=== PATIENT | female | born 1985 | race Caucasian/White ===

== ENCOUNTER 2024-10-23 08:42 | Emergency (ER) | payer SELFPAY ==
[2024-10-23 08:53] VITALS: BP 140/91; PULSE 92; RESP 24; TEMP 36.6; O2SAT 95; BMI 28.2
--- NOTE | 2024-10-23 09:07 | ED_ITS ---
HPI - Abdominal Pain General Chief Complaint: Abdominal Pain Stated Complaint: stomach pain Time Seen by Provider: 10/23/24 09:01 History of Present Illness HPI narrative: Patient is a 39-year-old woman with a distant history of ectopic who comes in today with severe right-sided lower abdominal pain. She began having a severe pain approximately 2 hours ago. She is not certain if she is late on her menses. She has had severe pain accompanied by nausea without vomiting. He has had no vaginal bleeding. No reflux symptoms. The pain is dull and severe. She otherwise states she is in good health and has no home medications at this time. Related Data Home Medications ?Medication ?Instructions ?Recorded ?Confirmed No Known Home Medications 10/23/24 10/23/24 Allergies Allergy/AdvReac Type Severity Reaction Status Date / Time No Known Drug Allergies Allergy Verified 10/23/24 09:03 Review of Systems Status of ROS Reports: 10 or more systems reviewed and unremarkable except as noted in History and below [facility] Social History Smoking Status: Smoker, status unknown Do you use any of these nicotine containing products: None Exam Narrative: Exam Narrative: EXAM GENERAL: Patient appears acutely uncomfortable holding her abdomen. EYES: No scleral icterus. LYMPH: No supraclavicular or cervical lymphadenopathy. SKIN: Visible skin seen during exam normal or with benign process only. EXT: No dependent lower extremity pedal edema. HEART: Regular rate and rhythm with no murmurs, rubs, or gallops. LUNGS: Clear to auscultation bilaterally with no crackles or wheezes. ABD: Tenderness to palpation with hypoactive bowel sounds limited exam due to patient guarding. PSYCH: Good eye contact, speech is not pressured. Const: Vital Signs, click to edit/add: Vital Signs - 24 hr 10/23/24 08:53 Temperature 98 F Pulse Rate [Pulse Oximeter] 92 Respiratory Rate 24 Blood Pressure [Ri ght Upper Arm] 140/91 H Pulse Oximetry 95 Oxygen Delivery Me thod Room Air Course Course ED Course: Patient seen examined. Laboratory work collected. Will proceed with CT abdomen pelvis after her returns. We will treat with normal saline Dilaudid and IV Zofran. Vital Signs Vital signs: Initial Vital Signs Temperature 98 F 10/23/24 08:53 Temperature Source Temporal Artery Scan 10/23/24 08:53 Pulse Rate 92 10/23/24 08:53 Respiratory Rate 24 10/23/24 08:53 Blood Pressure 140/91 H 10/23/24 08:53 Blood Pressure Mean 107 H 10/23/24 08:53 Blood Pressure Position Standing 10/23/24 08:53 Pulse Oximetry 95 10/23/24 08:53 Oxygen Delivery Method Room Air 10/23/24 08:53 Vital Signs Temperature 98 F 10/23/24 08:53 Pulse Rate 92 10/23/24 08:53 Respiratory Rate 24 10/23/24 08:53 Blood Pressure 140/91 H 10/23/24 08:53 Pulse Oximetry 95 10/23/24 08:53 Oxygen Delivery Method Room Air 10/23/24 08:53 Temperature 98 F 10/23/24 08:53 Pulse Rate 92 10/23/24 08:53 Respiratory Rate 24 10/23/24 08:53 Blood Pressure 140/91 H 10/23/24 08:53 Pulse Oximetry 95 10/23/24 08:53 Oxygen Delivery Method Room Air 10/23/24 08:53 Medications Administered Medications: Discontinued Medications Generic Name Dose Route Start Last Admin Trade Name Freq PRN Reason Stop Dose Admin Hydromorphone HCl 1 mg 10/23/24 09:05 10/23/24 09:29 Hydromorphone 0.5 Mg/0.5 Ml Inj IVP 10/23/24 09:06 1 mg ONCE ONE Administration Sodium Chloride 1,000 mls @ 1,000 mls/hr 10/23/24 09:06 10/23/24 10:32 0.9 % Sodium Chloride 1000 Ml IV 10/23/24 10:05 Infused .Q1H ROSANA Infusion Ondansetron HCl 4 mg 10/23/24 09:05 10/23/24 09:29 Ondansetron 2 Mg/Ml Inj IVP 10/23/24 09:06 4 mg ONCE ONE Administration MDM - Abdominal Pain MDM Narrative Medical decision making narrative: Patient is a 39-year-old woman who comes in with the abrupt onset of severe pain in the right flank. She was convinced that she had a tubal . Evaluation indicates that she has a 4 mm right-sided kidney stone. She was treated with pain control and hydration. She feels much better. She also has a positive UA for signs of infection. I will be sent for culture. She states she is unable to afford any antibiotics or pain medication. I did give her g Rocephin to try to cover her UTI. In addition, I did recommend Tylenol and Motrin rest and fluids we did send her home with a stone collection kit. Primary care follow-up recommended. Lab Data Labs: Lab Results 10/23/24 10/23/24 Range/Units 09:20 10:30 WBC 9.40 (4.50-11.00) K/uL RBC 4.33 (4.00-5.20) m/uL Hgb 13.3 (12.0-16.0) gm/dL Hct 40.3 (33.0-51.0) % MCV 93 (80-100) fL MCH 31 (26-34) pg MCHC 33 (32-36) gm/dL RDW Coeff of Melisa 12.7 (11.5-15.5) % Plt Count 219 (140-440) K/uL Neut % (Auto) 73.6 H (42.0-72.0) % Lymph % (Auto) 16.7 L (20-44) % Cort[place] % (Auto) 7.6 (0.0-11.0) % Eos % (Auto) 1.7 (0.0-7.0) % Baso % (Auto) 0.3 (0.0-3.0) % Neut # (Auto) 6.90 (1.7-7.0) K/uL Lymph # (Auto) 1.60 (0.90-2.90) K/uL [place] # (Auto) 0.70 (0.00-0.90) K/UL Eos # (Auto) 0.16 (0.00-0.50) K/uL Baso # (Auto) 0.03 (0.00-0.30) K/uL Abs Immat Gran (auto) 0.01 (0.00-0.30) K/uL Imm/Tot Granulo (auto) 0.1 % Sodium 140 (135-149) mmol/L Potassium 4.2 (3.6-5.1) mmol/L Chloride 103 (96-114) mmol/L Carbon Dioxide 26 (20-32) mmol/L Anion Gap 11 (7-15) mEq/L BUN 16 (5-24) mg/dL Creatinine 1.1 (0.5-1.5) mg/dL Estimated Creat Clear 58.12 Estimated GFR 65 ml/min Glucose 116 H (60-115) mg/dL Calcium 9.8 (8.4-10.6) mg/dL Total Bilirubin 0.4 (0.1-1.5) mg/dL AST 23 (12-35) U/L ALT 19 (4-35) U/L Alkaline Phosphatase 47 (40-150) U/L Total Protein 7.1 (6.0-8.3) g/dL Albumin 4.6 (3.3-5.0) g/dL HCG, Qual Negative (Negative) Urine Color Yellow (Yellow) Urine Appearance Slightly Cloudy A (Clear) Urine pH 6.5 (5.0-8.5) Ur Specific Keymar 1.010 (1.000-1.030) Urine Protein Negative (Negative) Urine Glucose (UA) Negative (Negative) Urine Ketones Negative (Negative) Urine Blood 3+ A (Negative) Urine Nitrite Positive A (Negative) Urine Bilirubin Negative (Negative) Urine Urobilinogen 0.2 (0.2-1.0) Ur Leukocyte Esterase Trace A (Negative) Urine RBC 25-50 A (0-2) Urine WBC 5-10 A (0-5) Urine WBC Clumps Few A (None) Ur Squamous Epith Cells Few (None-Few) Urine Bacteria Many A (None) Discharge Plan Discharge Clinical Impression: Calculus of kidney Patient Disposition: Home, Self-Care Condition: Stable Instructions: Kidney Stones (ED) Additional Instructions: Return if symptoms worsen. Tylenol 1000 mg 4 times a day as needed for pain Ibuprofen 600 mg 4 times a day as needed for pain Drink plenty of fluids Screen urine to collect stone. Activity Level: No Restrictions Discharge Diet: Regular Prescriptions: No Action No Known Home Medications Follow Up/Referrals: Provider,Not a Local [Primary Care Provider] - Stand Alone Forms: [employer] Info Instructions
--- NOTE | 2024-10-23 09:10 | CRLHL7_ITS ---
For Patients: As a result of the Century Cures Act, medical imaging exams and procedure reports are released immediately into your electronic medical record. You may view this report before your referring provider. If you have questions, please contact your health care provider. INDICATION: Abdominal pain. COMPARISON: None. TECHNIQUE: CT of the abdomen and pelvis with intravenous contrast. Multiplanar axial, coronal, and sagittal reformats were reconstructed. Contrast: 95 mL Isovue 370. FINDINGS: Lung bases: Normal. Liver: Focal fat at the falciform ligament. Gallbladder and bile ducts: Normal gallbladder. No bile duct dilation. Pancreas: Normal. Spleen: Normal. Adrenal glands: Normal. Kidneys: There is a 4 millimeter calculus in the right distal ureter there is upstream ureterectasis and pelvocaliectasis. Very minimally diminished right renal enhancement. Normal corticomedullary differentiation throughout. There is urothelial thickening and enhancement. No renal abscess or perinephric stranding. Normal left renal parenchyma. No left-sided urinary tract calculi. No left-sided urinary tract dilatation. Urinary bladder: Partially filled. Pelvis: IUD appears to be well positioned within the uterus. Physiologic appearance of both ovaries for a patient this age. Vessels: Minimal atherosclerosis. Bowel: No dilated or inflamed bowel. Normal appendix. Moderate stool burden. Lymph nodes: No adenopathy. Peritoneum: No ascites or free air. Abdominal wall: No hernia. Bones: No fractures. No focal worrisome bone lesions. IMPRESSION: 1. There is a 4 millimeter calculus in the right distal ureter with upstream urinary tract dilatation. 2. Urothelial thickening and enhancement in the right collecting system concerning for upper urinary tract infection. No pyelonephritis, renal abscess, or perinephric collection. Please note that all CT scans at this facility use dose modulation, iterative reconstruction, and/or weight-based dosing when appropriate to reduce radiation dose to as low as reasonably achievable. Dictated by Pamela Saab MD @ 10/23/2024 10:19:55 AM (Electronically Signed)
[2024-10-23 09:28] LABS: Basophils Absolute Auto 0.03 K/uL (0.00-0.30); Basophils Percent Auto 0.3 % (0.0-3.0); Eosinophils Absolute Auto 0.16 K/uL (0.00-0.50); Eosinophils Percent Auto 1.7 % (0.0-7.0); Hematocrit 40.3 % (33.0-51.0); Hemoglobin* 13.3 gm/dL (12.0-16.0); Immature Granulocytes Abs Auto 0.01 K/uL (0.00-0.30); Immature Granulocytes Pct Auto 0.1 %; Lymphocytes Percent Auto 16.7 % (20-44); Mean Corpuscular HGB Conc 33 gm/dL (32-36); Mean Corpuscular Hemoglobin 31 pg (26-34); Mean Corpuscular Volume 93 fL (80-100); Monocytes Percent Auto 7.6 % (0.0-11.0); Neutrophils Percent Auto 73.6 % (42.0-72.0); Platelet Count* 219 K/uL (140-440); RDW Coefficient of Variation % 12.7 % (11.5-15.5); Red Blood Count 4.33 m/uL (4.00-5.20)
[2024-10-23] MEDS: 0.9 % SODIUM CHLORIDE 1000 ml 1,000 ML IV (09:28)
[2024-10-23] MEDS: HYDROmorphone 0.5 mg/0.5 ml inj 1 MG IVP (09:29)
[2024-10-23] MEDS: ONDANSETRON 2 MG/ML inj 4 MG IVP (09:29)
[2024-10-23 09:35] LABS: Slide Review Reflex No
[2024-10-23 09:41] LABS: Albumin* 4.6 g/dL (3.3-5.0); Chloride* 103 mmol/L (96-114); Potassium* 4.2 mmol/L (3.6-5.1); Sodium* 140 mmol/L (135-149)
[2024-10-23 09:43] LABS: Blood Urea Nitrogen* 16 mg/dL (5-24); Creatinine* 1.1 mg/dL (0.5-1.5); Est. Creatinine Clearance* 58.12; Estimated Glomerular Filt Rate 65 ml/min
[2024-10-23 09:44] LABS: Alanine Aminotransferase* 19 U/L (4-35); Alkaline Phosphatase* 47 U/L (40-150); Anion Gap 11 mEq/L (7-15); Aspartate Amino Transferase* 23 U/L (12-35); Bilirubin Total* 0.4 mg/dL (0.1-1.5); Calcium* 9.8 mg/dL (8.4-10.6); Carbon Dioxide* 26 mmol/L (20-32); Glucose* 116 mg/dL (60-115); Total Protein* 7.1 g/dL (6.0-8.3)
[2024-10-23 09:56] LABS: HCG Qualitative Serum* Negative (Negative)
--- OUTSIDE RECORDS SUMMARY | 2024-10-23 10:14 | XMS_ITS | Clinical Summary ---
Author Organization [facility] Address [facility] [place] [address] Care Team Providers Care Mold Engraver Name Role Phone Urszula Funk Primary Care Provider [phone] Allergies No known active allergies Medications naproxen (ALEVE) 220 mg tabletIndicati ons:Trapezius muscle spasm Take 1 tablet by mouth 2 times daily with meals. 0 3 Active triamcinolone (ARISTOCORT) 0.1 % ointmentIndica tions:Dyshidro tic hand dermatitis Apply topically to affected area(s) 3 times daily. 30 g 1 Active HYDROcodone-ac etaminophen (NORCO) 5-325 mg per tabletIndicati ons:Hand arthritis,Fing er clubbing Take 1-2 Tablets by mouth 3 times daily if needed for Pain. Max acetaminophen dose: 4000 mg in 24 hrs. 15 Tablet 2 Active triamcinolone (ARISTOCORT) 0.1 % ointmentIndica tions:Hand dermatitis Apply topically to affected area(s) 2 times daily. 80 g 1 2 Active predniSONE (DELTASONE) 20 mg tabletIndicati ons:Pain Take 1 Tablet (20 mg) by mouth two times daily with meals. 1 tab bid day 1-5, 1 tab daily day 6-10 15 Tablet 3 Active ibuprofen (ADVIL; MOTRIN) 600 mg tabletIndicati ons:Raynaud's phenomenon with gangrene (HC) Take 1 Tablet (600 mg) by mouth every 6 hours if needed for Pain. Maximum of 3200 mg in 24 hours. 24 Tablet 3 Active Hospital, Clinic, or Other Facility Administered Medication Ordered Dose Route Frequency Start Date End Date Status copper intrauterine device (PARAGARD)Indications:Encoun ter for IUD insertion 1 Device IU Q 10 YEARS 06/02/2017 Act niecy Active Problems Problem Noted Date Diagnosed Date Family history of malignant neoplasm of gastrointestinal tract 05/24/2019 Tobacco use disorder 02/13/2009 Other ectopic without intrauterine pre gnancy 06/17/2008 Immunizations Immunization Administration Dates Next Due Hepatitis B (Adult) 05/29/2012 Influenza Virus, Unspecified 03/13/2015,03/16/20 14 Influenza, IIV3 (Age 6-35 mos) 03/22/2013,2011,04/04/2011,04/04/2010 Influenza, IIV4 03/16/2020, 9,03/27/2018,04/18/2017,1 ,03/30/2015,03/30/2015 MMR 06/19/1988 Tdap 07/03/2012 Family History Medical History Relation Name Comments Cancer Father bladder Cancer-colon Father Other Father Pancreatic canc er; hepatitis C; at age 52. Cancer-breast Maternal Grandmother Heart Disease Mother RI @ 52 Relation Name Status Comments Father (Age 52) pancreatic cancer Maternal Grandmother Mother (Age 52) [place] Social History Tobacco Use Types Packs/Day Years Used Date Smoking Tobacco: Every Day Cigarettes 0.5 8 Started: 06/07/2004; Last attempted to quit: 06/07/2012 Smokeless Tobacco: Never Tobacco Cessation:Ready to Q uit: Yes; Counseling Given: Yes Alcohol Use Standard Drinks/Week Comments Yes 0 (1 standard drink = 0.6 oz pur e alcohol) social PHQ-2 Answer Date Recorded PHQ-2 TOTAL SCORE 0 09/20/2020 Social Connections Answer Date Recorded Frequency of Communication with Friends and Fami ly Not on file 06/16/2021 Financial Resource Strain Answer Date R ecorded Difficulty of Paying Living Expenses Not on file 06/16/2021 Difficulty of Paying Living Expenses Not on file 06/16/2021 Comments No Sex and Gender Information Value Date Recorded Sex Assigned at Not on file Legal Sex Female 6:31 AM MARKETING ANALYTICS SPECIALIST Gender Identity Not on file Sexual Orientation Not on file Obstetrics History Para Term AB IAB SAB Ectopic Multiple Livin g Live Births 2 1 1 0 1 0 0 0 0 1 1 Date Outcome GA Total Labor Labor/2nd/3rd Weight Sex Type Anes PTL Ilana A1 A5 Name Clin 2002 Term 38w 0d 17h 00m/ 3.03 kg (6 lb 11 oz) M Vag-S pont Epidur al Livin g Ignacio Dr. Valentin Delivery Location:no lacerat ions Comments:no complicati ons 5 AB Last Filed Vital Signs Vital Sign Reading Time Taken Comments Blood Pressure 144/85 12/11/2022 6:33 AM CDT Pulse 91 12/11/2022 6:33 AM CDT Temperature 36.4 C (97.6 F) 12/11/2022 6:33 AM CDT Respiratory Rate 20 12/11/2022 6:33 AM CDT Oxygen Saturation 100% 12/11/2022 6:33 AM CDT Inhaled Oxygen Concentration - - Weight 72.6 kg (160 lb) 12/11/2022 6:33 AM CDT Height 157.5 cm (5' 2) 12/11/2022 6:33 AM CDT Body Mass Index 29.26 12/11/2022 6:33 AM CDT Plan of Treatment Health Maintenance Due Date Last Done Comments Pneumococcal series for age 6-49 (1 of 2 - PCV) 2002 BMI (ht and wt on same day) for age 18+ 09/20/2021 09/20/2020, 2019, 04/30/2017 Depression screening for age 12+ 09/20/2021 09/20/2020, 02/25/2019, 2019, Additional history exists Tetanus booster 07/03/2022 07/03/2012 COVID-19 vaccine series ( season) 2024 03/20/2021, 02/27/2021 Influenza Vaccine (Season Ended) 2025 03/16/2020, 03/19/2019, 03/27/2018, Additional history exists Pap test for age 21-65 09/20/2025 , 09/20/2020, 04/30/2017, Additional history exists HIV for age 15-65 Completed 05/24/2012 Hepatitis C screening for ag e 18-79 Completed 05/24/2012 Tdap Completed 07/03/2012 Procedures Procedure Name Priority Date/Time Associated Diagnosis Comments ROAD ROLLER OPERATOR HOT MIX THIN PREP PAP SCREEN IMAGED Routine 09/20/2020 1:17 PM CDT Pap smear for cervical cancer screening ANTI HIV 1/2 STAT 05/24/2012 11:35 AM MARKETING ANALYTICS SPECIALIST ANTI HCV STAT 05/24/2012 11:35 AM MARKETING ANALYTICS SPECIALIST from Last 3 Months or Most Recently Relevant to Health Maintenance Results * ROAD ROLLER OPERATOR HOT MIX THIN PREP PAP SCREEN IMAGED (09/20/2020 1:17 PM CDT) Case Report Gynecologic Cytology Report Case: [id number] Authorizing Provider: Urszula Funk PA Collected: 09/20/2020 1317 Ordering Location: [facility] Received: 09/20/2020 1352 Clinic First Screen: Latoya Ambriz Specimen: ROAD ROLLER OPERATOR HOT MIX ThinPrep Vial Screening, Cervical 10/02/2020 1:43 PM [facility]T [facility] INTERPRETATION/ RESULT NEGATIVE FOR INTRAEPITHELIAL LESION OR MALIGNANCY (NIL) (none) 10/02/2020 1:43 PM CDT [facility] at 1343 CDT ORGANISM(S) Fungal organisms morphologically consistent with Colette species 10/02/2020 1:43 PM CDT [facility] SPECIMEN ADEQUACY Satisfactory for evaluation No endocervical component seen 10/02/2020 1:43 PM CDT [facility] HPV REQUEST HPV and PAP 10/02/2020 1:43 PM CDT [facility] Date of LMP 09/06/2020 10/02/2020 1:43 PM CDT [facility] Last Pap Date 04/30/17 10/02/2020 1:43 PM CDT [facility] Last Pap Result NIL 1:43 PM CDT [facility] Abnormal Pap or Emerson Bx in last 5 years No 10/02/2020 1:43 PM CDT [facility] Menstrual Status Regular Periods 10/02/2020 1:43 PM CDT [facility] Emerson Bx Done Today No 10/02/2020 1:43 PM CDT [facility] Additional Information None given 10/02/2020 1:43 PM CDT [facility] Comment: Cytology is screened at [facility] - [address], [place] [address] [address] [facility] - [address], [place] [address] and [facility] - [address] [place] [address] Interpreted at [facility] - [address], [place] [address] Automated Review Successful 10/02/2020 1:43 PM CDT [facility] Comment:Specimen processed s uccessfully by automated client delivery manager device, ThinPrep Imaging System, [employer] ANCILLARY TESTING ROAD ROLLER OPERATOR HOT MIX HPV Ordered, Please see separate report 10/02/2020 1:43 PM CDT [facility] Note The pap test is a screening technique, not a diagnostic procedure. It is used primarily to screen for squamous cancers and precursor lesions. Published studies have shown that it is subject to both false negative and false positive results. The pap test should not be used as the sole means to diagnose or exclude pre-malignant and malignant lesions. 10/02/2020 1:43 PM CDT [facility] Other (Cervical) Non-Blood / Unknown 09/20/2020 1:17 PM CDT 09/20/2020 1:52 PM CDT us Urszula VERMA PATHOLOGY/CYTOLOGY Final R esult [facility] [address] [place] [address], [place] * ANTI HCV (05/24/2012 11:35 AM MARKETING ANALYTICS SPECIALIST) ANTI HCV Non-reacti ve [facility] Blood specimen (specimen) BLOOD SPECIMEN / Unknown 05/24/2012 11:35 AM MARKETING ANALYTICS SPECIALIST 05/24/2012 11:21 AM MARKETING ANALYTICS SPECIALIST us Willie Weber MD SEND OUTS Final Resu lt [facility] INTERNAL ZIP [address] [address] [place] [address] * ANTI HIV 1/2 (05/24/2012 11:35 AM MARKETING ANALYTICS SPECIALIST) ANTI HIV 1/2 Non-reacti ve [facility] Blood specimen (specimen) BLOOD SPECIMEN / Unknown 05/24/2012 11:35 AM MARKETING ANALYTICS SPECIALIST 05/24/2012 11:21 AM MARKETING ANALYTICS SPECIALIST us Willie Weber MD SEND OUTS Final Resu lt [facility] INTERNAL ZIP [id number] [place] [phone] from Last 3 Months or Most Recently Relevant to Health Maintenance Insurance [facility] ADVANTAGE PLAN [place] [id number] * Guarantor: [facility] [employer] Account Type Relation to Patient Date of Phone Billing Address [facility] [address] [place] [address] DO NOT USE THIS ACCT [place] [id number] [place] [phone] Advance Directives * Full Code (Latest Code Status on File) Date Activated Date Inactivated Comments 05/24/2019 12:41 PM 05/24/2019 4:57 PM Question Answer Comments Code Status Discussion: Discussed Care Teams Mold Engraver Relationship Specialty Start Date End Date Urszula Funk PA [address] [place] [address] PCP - General 06/08/08
[2024-10-23 10:46] LABS: Appearance Urine Slightly Cloudy (Clear); Bilirubin Urine Negative (Negative); Blood Urine 3+ (Negative); Color Urine Yellow (Yellow); Glucose Urine Negative (Negative); Ketones Urine Negative (Negative); Leukocyte Esterase Urine Trace (Negative); Nitrite Urine Positive (Negative); Protein Urine Negative (Negative); Urobilinogen Urine 0.2 (0.2-1.0); pH Urine 6.5 (5.0-8.5)
[2024-10-23 11:03] LABS: RBC Urine 25-50 (0-2); WBC Clumps Urine Few
[2024-10-23 11:04] LABS: Bacteria Urine Many; Squamous Epithelial Cell Urine Few (None-Few)
[2024-10-23] MEDS: cefTRIAXone 1 GM in 0.9 % SODIUM CHLORIDE Mini-bag 100 ML IVPB (11:18)
[2024-10-23] MEDS: HYDROmorphone 0.5 mg/0.5 ml inj IVP (11:46)
--- NOTE | 2024-11-15 11:29 | ED.NURSE ---
Pt called and reports ED Nurse had called to offer abx based on urine cx results. Pt at the time had declines d/t no insurance, but states symptoms have worsened: dysuria, urinary frequency, cloudy urine. Per juliano Martinez to call in Cipro 500mg BID x7days, no refills. Per MD, relay to Pt importance of close follow-up with PCP. Rx [facility]. Pt called with update, provided Pt with phone number for free/reduced cost clinic in [place] for f/u and reduced-pay program for Rx.
== END 2024-10-23 11:56 | disposition home or self-care (01) ==
PROVIDERS: Emergency Provider Internal Medicine
DX: N20.0 Calculus of kidney (principal)
CPT/HCPCS: 36415; 74177; 80053; 81001; 81003; 84703; 85025; 87086; 94761; 96365; 96375; 99283; 99284; 99285; J0696; J1171; J2405; J7030; Q9967